=== PATIENT | male | born 1995 | race African-American/Black ===

== ENCOUNTER 2017-07-01 10:30 | Emergency (ER) | payer SELFPAY ==
[2017-07-01 11:37] LABS: APPEARANCE CLOUDY (CLEAR); BILIRUBIN NEGATIVE (NEGATIVE); COLOR YELLOW (YELLOW); GLUCOSE NEGATIVE (NEGATIVE); KETONE NEGATIVE (NEGATIVE); NITRITE NEGATIVE (NEGATIVE); PROTEIN NEGATIVE (NEGATIVE); UROBILINOGEN NORMAL (NORMAL)
[2017-07-01 11:38] LABS: BACTERIA FEW /hpf (NONE SEEN); EPITHELIAL CELLS OCC /hpf (0-5); MUCUS <1+ /lpf (NONE SEEN); RED CELLS - URINE OCC /hpf (0-5); WHITE CELLS - URINE >50 /hpf (0-5)
== END 2017-07-01 12:30 | disposition home or self-care (01) ==
LOC: D.ER 10:30
PROVIDERS: Emergency Medicine
DX: N34.2 Other urethritis (principal); F17.200 Nicotine dependence, unspecified, uncomplicated

== ENCOUNTER 2020-02-16 16:29 | Emergency (ER) | payer SELFPAY ==
[~2020-02-16] VITALS: Ht 180.3 cm; Wt 63.2 kg
[2020-02-16 16:43] VITALS: Ht 180.3 cm; Wt 63.2 kg
[2020-02-16] MEDS ORDERED: HYDROCODON-ACE1 EAC7 PO (18:12)
[2020-02-16 18:35] VITALS: BP 123/64
== END 2020-02-16 18:36 | disposition home or self-care (01) ==
LOC: D.ER 16:29
DX: S61.213A Laceration without foreign body of left middle finger without damage to nail, initial encounter (principal); W25.XXXA Contact with sharp glass, initial encounter; Y93.9 Activity, unspecified; Y92.9 Unspecified place or not applicable